=== PATIENT | male | born 1940 | race Two or more races ===

== ENCOUNTER 2019-12-11 07:49 | Emergency (ER) | payer MEDICARE, MEDICAID ==
[~2019-12-11] VITALS: Ht 160 cm; Wt 93.4 kg
[~2019-12-11 07:49] MED LIST: ASPIRIN81 M3 PO; KAPSPARGO SPRIN25 MG PO; LISINOPRIL20 MG ORAL; METFORMIN HCL1000 M1 ORAL; METOPROLOL SUCC25 MG ORAL; MICROZIDE12.5 M1 PO; PROTONIX40 M2 PO
[2019-12-11] MEDS ORDERED: CATAPRES0.3 MG ORAL (08:03)
[2019-12-11] MEDS ORDERED: OMEPRAZOLE20 M2 ORAL (08:03)
[2019-12-11] MEDS ORDERED: MINOXIDIL10 MG PO (08:03)
[2019-12-11] MEDS ORDERED: METOPROLOL TAR100 M1 ORAL (08:03)
[2019-12-11] MEDS ORDERED: GLIMEPIRIDE4 MG ORAL (08:03)
[2019-12-11] MEDS ORDERED: ABILIFY10 MG ORAL (08:03)
[2019-12-11] MEDS ORDERED: HYDRALAZINE HC100 MG ORAL (08:03)
--- NOTE | 2019-12-11 08:05 | NUR ---
ED Nurse Note: PT WALKED IN WITH HIS SON DUE TO BEING UNABLE TO URINATE X 2 DAYS. NOTED SWELLING OF BLE AND BP 218/84 IN TRIAGE. DENIES CP OR SOB. AAO X4, AMBULATORY WITH NON LABORED BREATHING.
[2019-12-11 08:13] VITALS: BP 200/69
--- NOTE | 2019-12-11 08:47 | Emergency Room Report ---
History of Present Illness General Chief Complaint: Male Urogenital Problems Source: Medical Record Present Illness HPI 79-year-old male presents ED for evaluation. Patient states that he has been having chills since last night. Afebrile in triage. States that he has been having increased urinary dysuria and difficulty urinating since last night. Denies fevers as pain. Denies cough. Denies chest pain or shortness of breath. Also notes some intermittent leg swelling. BP high in triage. States that he did not take his morning BP meds. No other aggravating relieving factors. Denies any other associated symptoms Allergies: Coded Allergies: No Known Allergies (Unverified , 12/04/18) Patient History Past Medical History: DM, HTN Past Surgical History: none Pertinent Family History: none Social History: Denies: smoking, alcohol use, drug use Immunizations: UTD Reviewed Nursing Documentation: PMH: Agreed; PSxH: Agreed Nursing Documentation-PMH Past Medical History: No History, Except For Hx Hypertension: Yes Hx Diabetes: Yes Hx Cancer: No Hx Gastrointestinal Problems: No Hx Neurological Problems: No Review of Systems All Other Systems: negative except mentioned in HPI Physical Exam Vital Signs Date Time Temp Pulse Resp B/P (MAP) Pulse Ox O2 Delivery O2 Flow Rate FiO2 12/11/19 07:55 98.4 73 18 218/84 (128) 98 Room Air Sp02 EP Interpretation: reviewed, normal General Appearance: no apparent distress, alert, GCS 15, non-toxic Head: normocephalic, atraumatic Eyes: bilateral eye normal inspection, bilateral eye PERRL ENT: hearing grossly normal, normal pharynx, no angioedema, normal voice Neck: full range of motion, supple/symm/no masses Respiratory: chest non-tender, lungs clear, normal breath sounds, speaking full sentences Cardiovascular #1: regular rate, rhythm, no edema Cardiovascular #2: 2+ carotid (R), 2+ carotid (L), 2+ radial (R), 2+ radial (L) , 2+ dorsalis pedis (R), 2+ dorsalis pedis (L) Gastrointestinal: normal bowel sounds, non tender, soft, non-distended, no guarding, no rebound Rectal: deferred Genitourinary: normal inspection, no CVA tenderness Musculoskeletal: back normal, normal range of motion, gait/station normal, non- tender, swelling - 1+ pitting edema Neurologic: alert, motor strength/tone normal, oriented x3, sensory intact, responsive, speech normal Psychiatric: judgement/insight normal, memory normal, mood/affect normal, no suicidal/homicidal ideation Reflexes: 3+ bicep (R), 3+ bicep (L), 3+ tricep (R), 3+ tricep (L), 3+ knee (R) , 3+ knee (L) Skin: other - see nursing skin notes Lymphatic: no adenopathy Medical Decision Making Diagnostic Impression: Primary Impression: Renal insufficiency Additional Impression: Dysuria ER Course Hospital Course 79 yo M presents with dysuria, subjective fever and chills Differential diagnoses include: sepsis, UTI, pneumonia Clinical course Patient placed on stretcher. After initial history, physical exam reveals an elderly male in no acute distress. Bilateral TM unremarkable. No pharyngeal erythema. No tonsillar exudates. No lymphadenopathy. lungs clear. I ordered labs, IV fluids, UA, chest x-ray. Labs reviewed-no leukocytosis, hemoglobin/hematocrit stable, Cr 1.9, UA negative Chest x-ray shows no focal consolidation. no acute process Initially BP high. Had not taken his morning BP meds. Given hydralazine in ED with BP improved. There is initially discussion on admitting the patient. Patient asymptomatic. No signs of infection. No overt signs of CHF. Vitals stable. Son at bedside and agrees that patient can be discharged to home. Discussed with PMD Dr. Harris and he agreed that patient can be discharged with salt close outpatient follow-up Diagnosis - renal insufficiency, dysuria Stable and discharged home. Instructed to followup with PMD. Return to ED if symptoms recur or worsen Labs Test 12/11/19 08:30 12/11/19 09:05 White Blood Count 8.3 K/UL (4.8-10.8) Red Blood Count 3.59 M/UL (4.70-6.10) Hemoglobin 10.5 G/DL (14.2-18.0) Hematocrit 31.2 % (42.0-52.0) Mean Corpuscular Volume 87 FL (80-99) Mean Corpuscular Hemoglobin 29.4 PG (27.0-31.0) Mean Corpuscular Hemoglobin Concent 33.7 G/DL (32.0-36.0) Red Cell Distribution Width 16.7 % (11.6-14.8) Platelet Count 145 K/UL (150-450) Mean Platelet Volume 7.3 FL (6.5-10.1) Neutrophils (%) (Auto) 69.5 % (45.0-75.0) Lymphocytes (%) (Auto) 18.5 % (20.0-45.0) Monocytes (%) (Auto) 7.7 % (1.0-10.0) Eosinophils (%) (Auto) 2.9 % (0.0-3.0) Basophils (%) (Auto) 1.4 % (0.0-2.0) Sodium Level 132 MMOL/L (136-145) Potassium Level 5.0 MMOL/L (3.5-5.1) Chloride Level 98 MMOL/L (98-107) Carbon Dioxide Level 26 MMOL/L (21-32) Anion Gap 8 mmol/L (5-15) Blood Urea Nitrogen 27 mg/dL (7-18) Creatinine 1.9 MG/DL (0.55-1.30) Estimat Glomerular Filtration Rate 34.5 mL/min (>60) Glucose Level 164 MG/DL (74-106) Lactic Acid Level 1.80 mmol/L (0.4-2.0) Calcium Level 8.7 MG/DL (8.5-10.1) Total Bilirubin 0.4 MG/DL (0.2-1.0) Aspartate Amino Transf (AST/SGOT) 34 U/L (15-37) Alanine Aminotransferase (ALT/SGPT) 23 U/L (12-78) Alkaline Phosphatase 119 U/L (46-116) Troponin I 0.013 ng/mL (0.000-0.056) Pro-B-Type Natriuretic Peptide 1267 pg/mL (0-125) Total Protein 6.3 G/DL (6.4-8.2) Albumin 3.4 G/DL (3.4-5.0) Globulin 2.9 g/dL Albumin/Globulin Ratio 1.2 (1.0-2.7) Urine Color Pale yellow Urine Appearance Clear Urine pH 5 (4.5-8.0) Urine Specific [place] 1.010 (1.005-1.035) Urine Protein Negative (NEGATIVE) Urine Glucose (UA) Negative (NEGATIVE) Urine Ketones Negative (NEGATIVE) Urine Blood Negative (NEGATIVE) Urine Nitrite Negative (NEGATIVE) Urine Bilirubin Negative (NEGATIVE) Urine Urobilinogen Normal MG/DL (0.0-1.0) Urine Leukocyte Esterase Negative (NEGATIVE) EKG Diagnostic Results Rate: normal Rhythm: NSR ST Segments: no acute changes ASA given to the pt in ED: No Rhythm Strip Diag. Results EP Interpretation: yes Rhythm: NSR, no PVC's, no ectopy Chest X-Ray Diagnostic Results Chest X-Ray Diagnostic Results : Chest X-Ray Ordered: Yes # of Views/Limited/Complete: 1 View Indication: Other EP Interpretation: Yes Interpretation: no consolidation, no effusion, no pneumothorax, no acute cardiopulmonary disease Impression: No acute disease Electronically Signed by: Electronically signed by Mario Izaguirre MD Last Vital Signs Date Time Temp Pulse Resp B/P (MAP) Pulse Ox O2 Delivery O2 Flow Rate FiO2 12/11/19 08:13 98.4 79 16 200/69 97 Room Air Status: improved Disposition: HOME, SELF-CARE Condition: Stable Referrals: Reggie Harris MD (PCP) Mario Izaguirre MD Dec 11, 2019 08:47
[2019-12-11 08:51] LABS: BASOPHILS % (AUTO) 1.4 % (0.0-2.0); EOSINOPHILS % (AUTO) 2.9 % (0.0-3.0); HEMATOCRIT 31.2 % (42.0-52.0); HEMOGLOBIN 10.5 G/DL (14.2-18.0); LYMPHOCYTES % (AUTO) 18.5 % (20.0-45.0); MEAN CORPUSCULAR VOLUME 87 FL (80-99); MONOCYTES % (AUTO) 7.7 % (1.0-10.0); NEUTROPHILS % (AUTO) 69.5 % (45.0-75.0); PLATELET COUNT 145 K/UL (150-450); RED BLOOD COUNT 3.59 M/UL (4.70-6.10); RED CELL DISTRIBUTION WIDTH 16.7 % (11.6-14.8); WHITE BLOOD COUNT 8.3 K/UL (4.8-10.8)
[2019-12-11 09:01] LABS: ANION GAP 8 mmol/L (5-15); BLOOD UREA NITROGEN 27 mg/dL (7-18); CALCIUM 8.7 MG/DL (8.5-10.1); CARBON DIOXIDE 26 MMOL/L (21-32); CHLORIDE 98 MMOL/L (98-107); CREATININE 1.9 MG/DL (0.55-1.30); SODIUM 132 MMOL/L (136-145)
--- NOTE | 2019-12-11 09:03 | Diagnostic Imaging Report ---
EXAM: XR Chest, 1 View CLINICAL HISTORY: Shortness of breath TECHNIQUE: Frontal view of the chest. COMPARISON: Chest x-ray dated 12/04/18 FINDINGS: Lungs: Unremarkable. The lungs appear clear. No focal consolidation. Pleural space: Unremarkable. The costophrenic angles are sharp. No visible pneumothorax. Heart: Unremarkable. No cardiomegaly. Mediastinum: Unremarkable. Bones/joints: Unremarkable. Tubes, lines and devices: Telemetry leads overlie the thorax. IMPRESSION: No acute findings.
--- NOTE | 2019-12-11 09:05 | NUR ---
ED Nurse Note: SON TOOK ALL PT'S MEDICATIONS HOME. FLU SWAB AND URINE SENT TO LAB.
[2019-12-11 09:12] LABS: ALANINE AMINOTRANSFERASE 23 U/L (12-78); ALBUMIN 3.4 G/DL (3.4-5.0); ALBUMIN/GLOBULIN RATIO 1.2 (1.0-2.7); ALKALINE PHOSPHATASE 119 U/L (46-116); ASPARTATE AMINO TRANSFERASE 34 U/L (15-37); BILIRUBIN,TOTAL 0.4 MG/DL (0.2-1.0)
[2019-12-11 09:15] LABS: APPEARANCE,URINE CLEAR; BILIRUBIN, URINE NEGATIVE (NEGATIVE); COLOR,URINE PALE YELLOW; GLUCOSE, URINE (UA) NEGATIVE (NEGATIVE); KETONES,URINE NEGATIVE (NEGATIVE); LEUKOCYTE ESTERASE ,URINE NEGATIVE (NEGATIVE); NITRITE,URINE NEGATIVE (NEGATIVE); PH,URINE 5 (4.5-8.0); PROTEIN,URINE NEGATIVE (NEGATIVE); UROBILINOGEN,URINE NORMAL MG/DL (0.0-1.0)
--- NOTE | 2019-12-11 10:00 | NUR ---
ED Nurse Note: PT WITH NO ACUTE DISTRESS. DR SUAREZ SPOKE TO PT'S SON AND ADMISSION IS CANCELLED. WAITING FOR SON TO REAL ESTATE ADMINISTRATIVE ASSISTANT THE PT.
[2019-12-11 10:08] VITALS: BP 161/61
--- NOTE | 2019-12-11 11:46 | NUR ---
ED Nurse Note: attempted to call the son multiple times but did not answer. left a voice message
[2019-12-11 12:00] VITALS: BP 157/57
[2019-12-11 13:08] VITALS: BP 153/53
--- NOTE | 2019-12-11 13:08 | NUR ---
ER DISCHARGE NOTE: Patient is cleared to be discharged per ERMD, pt is aox4, on room air, with stable vital signs. pt was given dc instructions, pt was able to verbalize understanding, pt id band and iv site removed without complications. pt is able to ambulate with steady gait. pt took all belongings and left with his son.
== END 2019-12-11 13:08 | disposition home or self-care (01) ==
LOC: EMR 08:10
DX: N28.9 Disorder of kidney and ureter, unspecified (principal); R30.0 Dysuria; E11.9 Type 2 diabetes mellitus without complications; I10 Essential (primary) hypertension
CPT/HCPCS: 36415; 71045; 80053; 81003; 83605; 83880; 84484; 85025; 86710; 93005; 96374; 99284; J0360

== ENCOUNTER 2019-12-30 08:35 | Inpatient (IN) | payer MEDICARE, MEDICAID ==
[~2019-12-30] VITALS: Ht 162.6 cm; Wt 88.0 kg
[2019-12-30] VITALS (7 sets, daily range): BP systolic 161–217; BP diastolic 68–88
[~2019-12-30 08:35] MED LIST changes: +ABILIFY10 MG ORAL; +CATAPRES0.3 MG ORAL; +GLIMEPIRIDE4 MG ORAL; +HYDRALAZINE HC100 MG ORAL; +METOPROLOL TAR100 M1 ORAL; +MINOXIDIL10 MG PO; +OMEPRAZOLE20 M2 ORAL
[2019-12-30 09:25] LABS: BASOPHILS % (AUTO) 1.5 % (0.0-2.0); EOSINOPHILS % (AUTO) 1.9 % (0.0-3.0); HEMATOCRIT 33.8 % (42.0-52.0); HEMOGLOBIN 11.4 G/DL (14.2-18.0); LYMPHOCYTES % (AUTO) 12.2 % (20.0-45.0); MEAN CORPUSCULAR VOLUME 87 FL (80-99); NEUTROPHILS % (AUTO) 79.4 % (45.0-75.0); PLATELET COUNT 185 K/UL (150-450); RED BLOOD COUNT 3.87 M/UL (4.70-6.10); RED CELL DISTRIBUTION WIDTH 17.4 % (11.6-14.8); WHITE BLOOD COUNT 9.5 K/UL (4.8-10.8)
--- NOTE | 2019-12-30 09:26 | Diagnostic Imaging Report ---
Indication: Chest pain Technique: One view of the chest Comparison: 12/11/2019 Findings: Lungs and pleural spaces are clear. Heart size is normal. No significant change Impression: No acute process
--- NOTE | 2019-12-30 09:49 | Diagnostic Imaging Report ---
Indications: Headache Technique: Spiral acquisitions obtained through the brain. Angled axial and coronal 5 x 5 mm slices were reconstructed. Total dose length product 1018 mGycm. CTDI vol(s) 53 mGy. Dose reduction achieved using automated exposure control Comparison: None. Findings: There is age-related enlargement of the ventricles and extra axial CSF spaces. There is periventricular deep white matter low-attenuation, consistent with chronic microvascular ischemic change. No acute intracranial hemorrhage or edema. No mass effect nor midline shift. Intact calvarium. Visualized orbits are unremarkable. There is minimal sphenoid sinus disease Impression: Chronic and age-related changes Negative for acute intracranial bleed or mass effect The CT scanner at [facility] is accredited by the [employer] and the scans are performed using protocols designed to limit radiation exposure to as low as reasonably achievable to attain images of sufficient resolution adequate for diagnostic evaluation.
[2019-12-30 12:33] LABS: ANION GAP 13 mmol/L (5-15); BLOOD UREA NITROGEN 19 mg/dL (7-18); CALCIUM 9.3 MG/DL (8.5-10.1); CARBON DIOXIDE 24 MMOL/L (21-32); CHLORIDE 103 MMOL/L (98-107); CREATININE 1.3 MG/DL (0.55-1.30); POTASSIUM 4.8 MMOL/L (3.5-5.1); SODIUM 140 MMOL/L (136-145)
[2019-12-30 12:37] LABS: ALANINE AMINOTRANSFERASE 35 U/L (12-78); ALBUMIN 3.3 G/DL (3.4-5.0); ALKALINE PHOSPHATASE 139 U/L (46-116); ASPARTATE AMINO TRANSFERASE 26 U/L (15-37); BILIRUBIN,TOTAL 0.5 MG/DL (0.2-1.0)
--- NOTE | 2019-12-30 13:06 | Emergency Room Report ---
History of Present Illness General Chief Complaint: Hypertension Source: Patient Present Illness HPI Patient presents with complaints of headache elevated blood pressure Complains of increased nausea denies any fall or trauma denies any chest pain denies any back or flank pain Denies any focal weakness Pain is 4 out of 10 and diffuse Denies any neck pain or photophobia patient reports taking his underlying medication Allergies: Coded Allergies: No Known Allergies (Unverified , 12/04/18) Patient History Past Medical History: see triage record Reviewed Nursing Documentation: PMH: Agreed; PSxH: Agreed Nursing Documentation-PMH Past Medical History: No History, Except For Hx Hypertension: Yes Hx Diabetes: Yes Hx Cancer: No Hx Gastrointestinal Problems: No Hx Neurological Problems: No Review of Systems All Other Systems: negative except mentioned in HPI Physical Exam Vital Signs Date Time Temp Pulse Resp B/P (MAP) Pulse Ox O2 Delivery O2 Flow Rate FiO2 12/30/19 08:34 98.4 69 18 213/75 (121) 96 Room Air Sp02 EP Interpretation: reviewed, normal General Appearance: well appearing, no apparent distress Head: normocephalic, atraumatic Eyes: bilateral eye PERRL, bilateral eye EOMI ENT: hearing grossly normal, normal pharynx, TMs + canals normal, uvula midline Neck: full range of motion, supple, no meningismus, no bony tend Respiratory: lungs clear, normal breath sounds, no rhonchi, no respiratory distress, no retraction, no accessory muscle use Cardiovascular #1: normal peripheral pulses, regular rate, rhythm, no edema, no gallop, no JVD, no murmur Gastrointestinal: normal bowel sounds, non tender, soft, no mass, no organomegaly, non-distended, no guarding, no hernia, no pulsatile mass, no rebound Genitourinary: no CVA tenderness Musculoskeletal: normal inspection Neurologic: motor strength/tone normal, auto transmission specialist III-XII nml as tested, oriented x3 , sensory intact, responsive Psychiatric: mood/affect normal Lymphatic: normal inspection, no adenopathy Procedures Critical Care Time Critical Care Time 50 minutes for multiple evaluations critical findings requiring multiple exams control of blood pressure concern for deterioration and possible not including any procedural time Medical Decision Making Diagnostic Impression: Primary Impression: Hypertensive urgency, malignant ER Course Multiple differentials including but not limited to neurological, neurosurgical , cardiac, cardiopulmonary disease entertained Patient requiring repeat interventions for blood pressure at this time given the elevated findings CT head was negative patient's blood work otherwise benign levels and patient admitted for further inpatient care in critical condition Labs Test 12/30/19 09:00 12/30/19 15:50 12/31/19 05:45 White Blood Count 9.5 K/UL (4.8-10.8) 8.6 K/UL (4.8-10.8) Red Blood Count 3.87 M/UL (4.70-6.10) 3.75 M/UL (4.70-6.10) Hemoglobin 11.4 G/DL (14.2-18.0) 11.2 G/DL (14.2-18.0) Hematocrit 33.8 % (42.0-52.0) 32.8 % (42.0-52.0) Mean Corpuscular Volume 87 FL (80-99) 88 FL (80-99) Mean Corpuscular Hemoglobin 29.4 PG (27.0-31.0) 29.8 PG (27.0-31.0) Mean Corpuscular Hemoglobin Concent 33.7 G/DL (32.0-36.0) 34.0 G/DL (32.0-36.0) Red Cell Distribution Width 17.4 % (11.6-14.8) 17.1 % (11.6-14.8) Platelet Count 185 K/UL (150-450) 171 K/UL (150-450) Mean Platelet Volume 8.6 FL (6.5-10.1) 8.7 FL (6.5-10.1) Neutrophils (%) (Auto) 79.4 % (45.0-75.0) 64.2 % (45.0-75.0) Lymphocytes (%) (Auto) 12.2 % (20.0-45.0) 24.2 % (20.0-45.0) Monocytes (%) (Auto) 5.0 % (1.0-10.0) 7.3 % (1.0-10.0) Eosinophils (%) (Auto) 1.9 % (0.0-3.0) 2.9 % (0.0-3.0) Basophils (%) (Auto) 1.5 % (0.0-2.0) 1.5 % (0.0-2.0) Sodium Level 140 MMOL/L (136-145) 138 MMOL/L (136-145) Potassium Level 4.8 MMOL/L (3.5-5.1) 4.1 MMOL/L (3.5-5.1) Chloride Level 103 MMOL/L (98-107) 103 MMOL/L (98-107) Carbon Dioxide Level 24 MMOL/L (21-32) 30 MMOL/L (21-32) Anion Gap 13 mmol/L (5-15) 5 mmol/L (5-15) Blood Urea Nitrogen 19 mg/dL (7-18) 15 mg/dL (7-18) Creatinine 1.3 MG/DL (0.55-1.30) 1.2 MG/DL (0.55-1.30) Estimat Glomerular Filtration Rate 53.4 mL/min (>60) 58.6 mL/min (>60) Glucose Level 241 MG/DL (74-106) 201 MG/DL (74-106) Calcium Level 9.3 MG/DL (8.5-10.1) 9.1 MG/DL (8.5-10.1) Total Bilirubin 0.5 MG/DL (0.2-1.0) 0.5 MG/DL (0.2-1.0) Aspartate Amino Transf (AST/SGOT) 26 U/L (15-37) 27 U/L (15-37) Alanine Aminotransferase (ALT/SGPT) 35 U/L (12-78) 33 U/L (12-78) Alkaline Phosphatase 139 U/L (46-116) 120 U/L (46-116) Troponin I 0.018 ng/mL (0.000-0.056) 0.034 ng/mL (0.000-0.056) 0.033 ng/mL (0.000-0.056) Pro-B-Type Natriuretic Peptide 1158 pg/mL (0-125) Total Protein 6.6 G/DL (6.4-8.2) 6.3 G/DL (6.4-8.2) Albumin 3.3 G/DL (3.4-5.0) 3.3 G/DL (3.4-5.0) Globulin 3.3 g/dL 3.0 g/dL Albumin/Globulin Ratio 1.0 (1.0-2.7) 1.1 (1.0-2.7) Hemoglobin A1c 7.3 % (4.3-6.0) Triglycerides Level 101 MG/DL (30-150) Cholesterol Level 141 MG/DL (< 200) LDL Cholesterol 69 mg/dL (<100) HDL Cholesterol 45 MG/DL (40-60) Cholesterol/HDL Ratio 3.1 (3.3-4.4) Thyroid Stimulating Hormone (TSH) 2.008 uiU/mL (0.358-3.740) Rhythm Strip Diag. Results EP Interpretation: yes Rate: 78 Rhythm: NSR, no PVC's, no ectopy Chest X-Ray Diagnostic Results Chest X-Ray Diagnostic Results : Chest X-Ray Ordered: Yes # of Views/Limited/Complete: 1 View Indication: Chest Pain EP Interpretation: Yes Interpretation: no consolidation, no effusion, no pneumothorax Impression: No acute disease Electronically Signed by: Mari Davila, CT/MRI/US Diagnostic Results CT/MRI/US Diagnostic Results : Impression CT headImpression: Chronic and age-related changes Negative for acute intracranial bleed or mass effect Last Vital Signs Date Time Temp Pulse Resp B/P (MAP) Pulse Ox O2 Delivery O2 Flow Rate FiO2 12/30/19 12:56 203/69 12/30/19 10:45 98.0 56 18 96 Room Air Status: improved Disposition: ADMITTED INPATIENT Condition: Serious Scripts Escitalopram Oxalate (LEXAPRO) 5 Mg Tablet 5 MG ORAL DAILY for 30 Days, #30 TAB Prov: Paramjit John MD 12/31/19 Metoprolol Tartrate* (METOPROLOL TARTRATE*) 100 Mg Tablet 100 MG ORAL EVERY 12 HOURS for 30 Days, #60 TAB Prov: Paramjit John MD 12/31/19 Lisinopril* (PRINIVIL*) 20 Mg Tablet 40 MG ORAL DAILY for 30 Days, #30 TAB Prov: Paramjit John MD 12/31/19 Aspirin Ec* (ASPIRIN EC*) 81 Mg Tablet.dr 81 MG ORAL DAILY for 30 Days, #30 TAB Prov: Paramjit John MD 12/31/19 Amlodipine Besylate (Norvasc) 5 Mg Tablet 5 MG ORAL DAILY for 30 Days, #30 TAB Prov: Tirmizi,Paramjit Tim MD 12/31/19 Referrals: NOT CHOSEN [facility]/,REFERRING (PCP) Mari Davila DO Dec 30, 2019 13:06
--- NOTE | 2019-12-30 14:59 | History & Physical ---
History and Physical History & Physicial HISTORY OF PRESENT ILLNESS: The patient is a 79-year-old gentleman who presents to the emergency department for evaluation and management of hypertension. At home, the patient takes metoprolol for this condition. At the time of arrival to the hospital, he had some chest pain, described as burning sensation, 5/10, nonradiating, and non-provoked. There was no associated shortness of breath. The patient was admitted to telemetry for further evaluation and management. At the time of arrival to the hospital, blood pressure was 230/94 mmHg. PAST MEDICAL HISTORY: Diabetes mellitus and hypertension. PAST SURGICAL HISTORY: None. FAMILY HISTORY: No premature coronary artery disease or arrhythmogenic in the first-degree relatives. SOCIAL HISTORY: Denies any tobacco, alcohol, or illicit drug use. REVIEW OF SYSTEMS: HEENT: Denies any diplopia, or blurred vision. CONSTITUTIONAL: Denies any fever, chills, night sweats, or weight loss. CARDIOVASCULAR: Complains of chest pain. No shortness of breath. No complaints of PND, orthopnea, leg swelling, or syncope. PULMONARY: Denies any cough, hemoptysis, or wheezing. GASTROINTESTINAL: Denies any nausea, vomiting, diarrhea, constipation, abdominal pain, or GI bleed. GENITOURINARY: Denies any hematuria, dysuria, or incontinence. NEUROLOGY: Denies any motor dysfunction, sensory deficit, or altered speech. MEDICATIONS: List of medications at home include: 1. Hydrochlorothiazide 12.5 mg p.o. daily. 2. Metoprolol 25 mg p.o. daily. PHYSICAL EXAMINATION: VITAL SIGNS: Blood pressure at the time of arrival to the hospital was 230/94, respirations of 18, pulse oximetry of 98% on room air, and temperature 97.5 degrees Fahrenheit. GENERAL: no apparent respiratory distress. Awake and alert. HEENT: Atraumatic and normocephalic. Anicteric. Pupils are equal, round, and reactive to light and accommodation. Extraocular muscles intact. NECK: JVP less than 5 cm. No carotid bruit. Carotid upstroke is 2+ bilaterally. CARDIOVASCULAR: Normal S1 and S2. Regular rate and rhythm. Tachycardic. No murmurs, gallops, or rubs. PMI is at fourth intercostal space at midclavicular line. LUNGS: Clear to auscultation bilaterally. ABDOMEN: Soft, nontender, and nondistended. No hepatosplenomegaly. Positive bowel sounds. EXTREMITIES: No evidence of edema, clubbing, or cyanosis. LABORATORY FINDINGS: Reviewed ASSESSMENT AND PLAN: 1. Hypertensive urgency. He has received intravenous hydralazine in the ER I will consult cardiology. I will continue the patient's metoprolol. Continue monitoring the heart rate during this hospitalization. 2. Diabetes mellitus. [place] diabetic monitoring Paramjit Baig M.D., MD Dec 30, 2019 14:59
[2019-12-30] MEDS ORDERED: Lisinopril 20mg tab ORAL SCH (15:07)
[2019-12-30] MEDS ORDERED: Metoprolol Tartrate 100mg tab ORAL SCH (17:00)
[2019-12-30] MEDS: Heparin 5000 units/ml inj SUBQ SCH (17:44)
[2019-12-30] MEDS: Metoprolol Tartrate 100mg tab ORAL SCH (21:38)
[2019-12-30] MEDS: NovoLOG Insulin Flexpen SUBQ SCH (21:39)
[2019-12-31] VITALS: BP 183/80
[2019-12-31] MEDS: HydrALAZINE 25mg tab ORAL PRN ×3 (00:38→16:42)
--- NOTE | 2019-12-31 01:15 | Consultation ---
DATE OF CONSULTATION: 12/30/2019 CARDIOLOGY CONSULTATION CONSULTING PHYSICIAN: Volodymyr Calvo M.D. REFERRING PHYSICIAN: Paramjit John M.D. REASON FOR CONSUL: Hypertensive urgency and with chest pain. HISTORY OF PRESENT ILLNESS: This is a 79-year-old male with a longstanding history of hypertension and hypertensive heart disease as well as type 2 diabetes mellitus. He presented to the emergency room complaining of high blood pressure associated with headaches and some blurry vision. He also noted some chest discomfort described as a burning sensation in the mid substernal region, unprovoked, and nonradiating without any associated shortness of breath. His initial workup was notable for a blood pressure of 230/94. His troponin level was 0.018. His electrocardiogram in the emergency room reveals his sinus rhythm with nonspecific ST-T wave changes and voltage for left ventricular hypertrophy. PAST MEDICAL HISTORY: Includes hypertension, type 2 diabetes mellitus, osteoarthritis, and pulmonary hypertension. ALLERGIES: None. MEDICATIONS: Prior to admission, reviewed and reconciled. It is not clear however how compliant he has been. SOCIAL HISTORY: Denies smoking, alcohol, or substance abuse. FAMILY HISTORY: Noncontributory. REVIEW OF SYSTEMS: No fevers or chills. No recent cough or upper respiratory infection. No history of abnormal blood clotting. He was hospitalized here in 2019 with a similar presentation. At that time, a 2D echocardiogram performed revealed PA systolic pressure of 41 mmHg and an ejection fraction of 65 percent with normal wall motion. A stress test was not performed. He was managed medically. There is no history of seizure or stroke. His headaches are frequent and he claims he has migraines. He has diabetes managed with diet. There is no history of thyroid disorder and he does not know his cholesterol level. There is no history of prostate cancer or elevated PSA. No kidney disease that he is aware of. No change in bowel habits, melena, or bright red blood per rectum. PHYSICAL EXAMINATION: GENERAL: He is well developed and well nourished, in no acute distress presently, but does complain of a significant headache. VITAL SIGNS: Blood pressure now 181/72, heart rate 57, monitored rhythm, sinus bradycardia, respiratory rate 18. No fevers. Male pattern balding. HEENT: Fundi benign. Conjunctivae pink. Sclerae are anicteric. Oropharynx clear. Mucous membranes moist. NECK: Supple. Jugular venous pressure is slightly elevated. Carotid upstrokes without delay or bruits. There is no temporal tenderness to palpation. LUNGS: Clear. CARDIAC: Regular rhythm and rate. Normal S1, S2 with a fourth heart sound and a 1/6 systolic murmur at the lower left sternal border. ABDOMEN: Soft and nontender. EXTREMITIES: Good pulses. No edema. NEUROLOGIC: Nonfocal. There are no bruits and distal pulses are 2+ symmetric. LABORATORY DATA: White count 9.5 and hemoglobin 11.4. BUN 19 and creatinine 1.3. Potassium 4.8. Pro-natriuretic peptide 1158. Albumin 3.3. Chest x-ray with no acute process. IMPRESSION: 1. Hypertensive urgency. 2. Sinus bradycardia due to beta-blockers. 3. Acute coronary insufficiency due to diastolic dysfunction and severe hypertension with increase in myocardial demand. 4. History of type 2 diabetes mellitus. PLAN: 1. Cardiac monitoring. 2. Cautious up-titration of antihypertensive regimen. 3. Antiplatelet therapy. 4. Lipid panel. 5. Serial troponin levels. 6. Thyroid panel. 7. Lipid panel. 8. Repeat echocardiogram. 9. We will determine need for further ischemia workup once blood pressure parameters are stabilized. Volodymyr Calvo M.D. DR: JOSS JOB#: [id number] CC:
[2019-12-31 04:00] VITALS: BP 161/75
[2019-12-31] MEDS: NovoLOG Insulin Flexpen SUBQ SCH ×3 (06:20→16:47)
[2019-12-31] MEDS ORDERED: NovoLOG Insulin Flexpen SUBQ SCH (06:30)
[2019-12-31 07:21] LABS: BASOPHILS % (AUTO) 1.5 % (0.0-2.0); EOSINOPHILS % (AUTO) 2.9 % (0.0-3.0); HEMATOCRIT 32.8 % (42.0-52.0); HEMOGLOBIN 11.2 G/DL (14.2-18.0); LYMPHOCYTES % (AUTO) 24.2 % (20.0-45.0); MEAN CORPUSCULAR VOLUME 88 FL (80-99); MONOCYTES % (AUTO) 7.3 % (1.0-10.0); NEUTROPHILS % (AUTO) 64.2 % (45.0-75.0); PLATELET COUNT 171 K/UL (150-450); RED BLOOD COUNT 3.75 M/UL (4.70-6.10); RED CELL DISTRIBUTION WIDTH 17.1 % (11.6-14.8); WHITE BLOOD COUNT 8.6 K/UL (4.8-10.8)
[2019-12-31 08:00] VITALS: BP 179/85
[2019-12-31 08:20] LABS: ALANINE AMINOTRANSFERASE 33 U/L (12-78); ALBUMIN 3.3 G/DL (3.4-5.0); ALBUMIN/GLOBULIN RATIO 1.1 (1.0-2.7); ALKALINE PHOSPHATASE 120 U/L (46-116); ANION GAP 5 mmol/L (5-15); ASPARTATE AMINO TRANSFERASE 27 U/L (15-37); BILIRUBIN,TOTAL 0.5 MG/DL (0.2-1.0); BLOOD UREA NITROGEN 15 mg/dL (7-18); CALCIUM 9.1 MG/DL (8.5-10.1); CARBON DIOXIDE 30 MMOL/L (21-32); CHLORIDE 103 MMOL/L (98-107); CHOLESTEROL 141 MG/DL (< 200); CREATININE 1.2 MG/DL (0.55-1.30); HDL CHOLESTEROL 45 MG/DL (40-60); POTASSIUM 4.1 MMOL/L (3.5-5.1); SODIUM 138 MMOL/L (136-145); TRIGLYCERIDES 101 MG/DL (30-150)
[2019-12-31] MEDS: Metoprolol Tartrate 100mg tab ORAL SCH (08:25)
[2019-12-31] MEDS: Heparin 5000 units/ml inj SUBQ SCH (08:30)
[2019-12-31] MEDS ORDERED: Lisinopril 20mg tab ORAL SCH (09:00)
[2019-12-31] MEDS ORDERED: Aspirin EC 81mg tab ORAL SCH (09:00)
--- NOTE | 2019-12-31 09:15 | Pulmonology Progress Note ---
Assessment/Plan Assessment/Plan ASSESSMENT AND PLAN: 1. Hypertensive urgency. He has received intravenous hydralazine in the ER Seen by cardiology. I will continue the patient's metoprolol. DC home today as p[ressures are controlled. Continue monitoring the heart rate during this hospitalization. 2. Diabetes mellitus. [place] monitoring Paramjit John M.D. Subjective Interval Events: Feeling better; still weak; is depressed Constitutional: Reports: no symptoms HEENT: Repors: no symptoms Respiratory: Reports: no symptoms Cardiovascular: Reports: no symptoms Gastrointestinal/Abdominal: Reports: no symptoms Genitourinary: Reports: no symptoms Allergies: Coded Allergies: No Known Allergies (Unverified , 12/04/18) Objective Last 24 Hour Vital Signs Date Time Temp Pulse Resp B/P (MAP) Pulse Ox O2 Delivery O2 Flow Rate FiO2 12/31/19 08:26 179/85 12/31/19 08:25 69 179/85 12/31/19 08:25 69 179/85 12/31/19 08:00 98.2 69 20 179/85 (116) 97 12/31/19 05:25 163/78 12/31/19 04:04 55 12/31/19 04:00 97.6 56 16 161/75 (103) 97 12/31/19 00:38 177/74 12/31/19 00:00 97.8 56 16 183/80 (114) 96 12/31/19 00:00 53 12/30/19 21:38 59 160/74 12/30/19 21:00 Room Air 12/30/19 20:00 97.5 60 16 161/88 (112) 96 12/30/19 20:00 61 12/30/19 17:42 57 181/72 12/30/19 16:00 97.8 84 20 181/78 (112) 97 12/30/19 16:00 57 12/30/19 15:39 Room Air 12/30/19 15:07 181/72 12/30/19 14:10 98.2 59 19 170/65 96 Room Air 12/30/19 13:28 197/68 12/30/19 13:26 178/73 12/30/19 12:56 203/69 12/30/19 12:27 222/65 12/30/19 11:17 211/65 12/30/19 10:45 98.0 56 18 211/71 96 Room Air Intake and Output 12/30/19 12/31/19 19:00 07:00 Intake Total 0 ml 540 ml Output Total 1100 ml Balance 0 ml -560 ml Intake Oral 0 ml 540 ml Output Urine Total 1100 ml # Voids 1 General Appearance: no acute distress HEENT: normocephalic Respiratory/Chest: chest wall non-tender Cardiovascular: normal peripheral pulses Abdomen: normal bowel sounds Microbiology Date/Time Source Procedure Growth Status 12/30/19 09:45 Rectum Received Laboratory Tests 12/30/19 15:50: Troponin I 0.034 12/31/19 05:45: Troponin I 0.033, White Blood Count 8.6, Red Blood Count 3.75L, Hemoglobin 11.2L , Hematocrit 32.8L, Mean Corpuscular Volume 88, Mean Corpuscular Hemoglobin 29.8 , Mean Corpuscular Hemoglobin Concent 34.0, Red Cell Distribution Width 17.1H, Platelet Count 171, Mean Platelet Volume 8.7, Neutrophils (%) (Auto) 64.2, Lymphocytes (%) (Auto) 24.2, Monocytes (%) (Auto) 7.3, Eosinophils (%) (Auto) 2.9, Basophils (%) (Auto) 1.5, Sodium Level 138, Potassium Level 4.1, Chloride Level 103, Carbon Dioxide Level 30, Anion Gap 5, Blood Urea Nitrogen 15, Creatinine 1.2, Estimat Glomerular Filtration Rate 58.6, Glucose Level 201H, Hemoglobin A1c 7.3H, Calcium Level 9.1, Total Bilirubin 0.5, Aspartate Amino Transf (AST/SGOT) 27, Alanine Aminotransferase (ALT/SGPT) 33, Alkaline Phosphatase 120H, Total Protein 6.3L, Albumin 3.3L, Globulin 3.0, Albumin/ Globulin Ratio 1.1, Triglycerides Level 101, Cholesterol Level 141, LDL Cholesterol 69, HDL Cholesterol 45, Cholesterol/HDL Ratio 3.1L, Thyroid Stimulating Hormone (TSH) 2.008 Current Medications Medications (Trade) Dose Ordered Sig/Porter Route PRN Reason Start Time Stop Time Status Last Admin Dose Admin Acetaminophen (Tylenol) 650 mg Q4H PRN ORAL Mild Pain (Pain Scale 1-3) 12/30/19 15:15 01/29/20 15:14 Amlodipine Besylate (Norvasc) 5 mg DAILY ORAL 12/31/19 09:00 01/30/20 08:59 12/31/19 08:25 Aspirin (Ecotrin) 81 mg DAILY ORAL 12/31/19 09:00 02/14/20 08:59 12/31/19 08:25 Dextrose (Dextrose 50%) 25 ml Q30M PRN IV Hypoglycemia 12/30/19 15:15 01/29/20 15:14 Dextrose (Dextrose 50%) 25 ml Q30M PRN IV Hypoglycemia 12/30/19 17:45 01/29/20 17:44 Dextrose (Dextrose 50%) 50 ml Q30M PRN IV Hypoglycemia 12/30/19 15:15 01/29/20 15:14 Dextrose (Dextrose 50%) 50 ml Q30M PRN IV Hypoglycemia 12/30/19 17:45 01/29/20 17:44 Heparin Sodium (Porcine) (Heparin 5000 units/ml) 5,000 units EVERY 12 HOURS SUBQ 12/30/19 17:00 02/13/20 16:59 12/31/19 08:30 Hydralazine HCl (Apresoline) 25 mg Q4H PRN ORAL SBP above 160 12/30/19 17:30 01/29/20 17:29 12/31/19 05:25 Insulin Aspart (NovoLOG) BEFORE MEALS AND HS SUBQ 12/30/19 21:00 01/29/20 20:59 12/31/19 06:20 Lisinopril (PriniviL) 40 mg DAILY ORAL 12/31/19 09:00 01/30/20 08:59 12/31/19 08:26 Metoprolol Tartrate (Lopressor) 100 mg EVERY 12 HOURS ORAL 12/30/19 21:00 01/29/20 20:59 12/31/19 08:25 Paramjit John MD Dec 31, 2019 09:15
[2019-12-31] MEDS ORDERED: PRINIVIL20 MG ORAL (09:18)
[2019-12-31] MEDS ORDERED: ASPIRIN EC81 MG ORAL (09:18)
[2019-12-31] MEDS ORDERED: NORVASC5 MG ORAL (09:18)
[2019-12-31] MEDS ORDERED: LEXAPRO5 MG ORAL (09:18)
[2019-12-31] MEDS ORDERED: METOPROLOL TAR100 M1 ORAL (09:18)
[2019-12-31 15:21] VITALS: BP 170/97
[2019-12-31 16:00] VITALS: BP 195/91
[2019-12-31 16:42] VITALS: BP 195/91
--- NOTE | 2020-01-02 01:59 | Progress Note ---
DATE: 12/31/2019 CARDIOLOGY PROGRESS NOTE SUBJECTIVE: The patient seen and evaluated. He has no chest pain or shortness of breath. His blood pressure parameters are improved but remained elevated. PHYSICAL EXAMINATION: VITAL SIGNS: Blood pressure 179/85, pulse 72, respiratory rate 20, afebrile, oxygen sat 96%. LUNGS: Clear. CARDIAC: Regular. Normal S1, S2 with a fourth heart sound. ABDOMEN: Soft. EXTREMITIES: There is no bruits or edema. LABORATORY AND DIAGNOSTIC DATA: White count 8.6, hemoglobin 11.2. Troponin negative. Hemoglobin A1c 7.3. LDL cholesterol 69. IMPRESSION: 1. Hypertensive urgency improved. 2. Medication noncompliance. 3. Type 2 diabetes mellitus with A1c of 7.3. 4. No signs for acute myocardial infarction or ongoing ischemia with better blood pressure control. 5. Favorable lipid parameters on current regimen. PLAN: 1. Stable for outpatient followup. 2. Discharge medication regimen reviewed. 3. Can advance amlodipine for tighter blood pressure control. 4. We will make further adjustments as an outpatient. Volodymyr Calvo M.D. DR: Daysi JOB#: [id number] CC:
--- NOTE | 2020-01-02 11:41 | Discharge Summary ---
Discharge Summary Discharge Summary _ DATE OF ADMISSION: 12/30/2019 DATE OF DISCHARGE: 12/31/2019 DISCHARGED BY: Dr. Shell John CONSULTANTS: Dr. Volodymyr Calvo BRIEF HOSPITAL COURSE: Patient is a 79-year-old gentleman who presented to the emergency department for evaluation and management of hypertension. Patient takes metoprolol for this condition. He has medical history of diabetes and hypertension. At the time of arrival to the hospital, he had chest pain, described as burning sensation, 5/10, nonradiating, and non-provoked. There was no associated shortness of breath. Blood pressure was 213/75. He complained of headache. He has increased nausea. He denied any fall or trauma. Denied back or flank pain. Denies neck pain or photophobia. Blood work did not show any leukocytosis. Hemoglobin and hematocrit were stable. Electrolytes were normal. Troponin was negative. proBNP 1158. EKG showed sinus rhythm with nonspecific ST-T wave changes and voltage for left ventricular hypertrophy. He was given hydralazine IV x2. Blood pressure was still elevated. He was then admitted for evaluation of hypertensive urgency. He was admitted to monitored floor. Blood glucose was monitored. He was placed on insulin sliding scale. He underwent cardiac evaluation. He was continued on metoprolol. He was given antiplatelet therapy. Thyroid function was normal. Lipid panel was acceptable. Lisinopril and Norvasc was added to his regimen. Cardiac enzymes were monitored and were negative. Blood pressure improved but remains elevated. Patient did not have any chest pain or shortness of breath. Patient was stable for outpatient follow-up. Patient was cleared for discharge home. FINAL DIAGNOSES: Hypertensive urgency, improved Medication noncompliance Type 2 diabetes mellitus with hemoglobin A1c of 7.3 No signs for acute myocardial infarction or ongoing ischemia with better blood pressure control Favorable lipid parameters DISPOSITION: Patient was discharged home. DISCHARGE MEDICATIONS: Refer to Discharge Medication List. DISCHARGE INSTRUCTIONS: Follow-up in a week. I have been assigned to complete a discharge summary on this account, I was not involved with the patient's management.--ANGUS Royal Jacqueline Robles NP Jan 02, 2020 11:41
== END 2019-12-31 16:50 | disposition home or self-care (01) | DRG 199 ==
LOC: EDBD 08:35 → EMR 09:20 → EDBEDREQ 12:42 → 2E 12:53
DX: I16.0 Hypertensive urgency (principal); R00.1 Bradycardia, unspecified; I24.8 Other forms of acute ischemic heart disease; E11.9 Type 2 diabetes mellitus without complications; Z91.14 Patient's other noncompliance with medication regimen; R07.9 Chest pain, unspecified; M19.90 Unspecified osteoarthritis, unspecified site; I27.20 Pulmonary hypertension, unspecified
CPT/HCPCS: 36415; 70450; 71045; 80053; 80061; 82962; 83036; 83880; 84443; 84484; 85025; 87081; 93005; 96374; 96376; 99285; J1815

== ENCOUNTER 2020-03-05 07:09 | Emergency (ER) | payer MEDICARE, OTHER ==
[~2020-03-05] VITALS: Ht 175.3 cm; Wt 80.7 kg
[~2020-03-05 07:09] MED LIST changes: +ASPIRIN EC81 MG ORAL; +LEXAPRO5 MG ORAL; +NORVASC5 MG ORAL; +PRINIVIL20 MG ORAL
--- NOTE | 2020-03-05 07:30 | NUR ---
ED Nurse Note: brought by son from home due to weakness and shakiness of the body. Breathing normal/even/unlabored. skin warm/dry/intact. NAD noted. Denies numbness/tingling/facial droop.
--- NOTE | 2020-03-05 07:36 | NUR ---
ED Nurse Note: [phone]: Brooks (son).
[2020-03-05] MEDS ORDERED: DiphenhydrAMINE 50mg/ml Inj IVP ONE (07:45)
[2020-03-05] MEDS ORDERED: Acetaminophen 500mg (ES) tab ORAL ONE (07:45)
--- NOTE | 2020-03-05 07:52 | Emergency Room Report ---
History of Present Illness General Chief Complaint: Headache Source: Patient Present Illness HPI 79-year-old male history of hypertension, diabetes presents with vague complaints of feeling generalized weakness, sweats over the past 2 weeks, no aggravating relieving factors severity is moderate, constant he denies any chest pain shortness of breath dyspnea on exertion abdominal pain dysuria. Allergies: Coded Allergies: No Known Allergies (Unverified , 12/04/18) COVID-19 Screening Contact w/high risk pt: No Recent Travel to affected area: No Experienced COVID-19 symptoms?: No COVID-19 Testing performed DIAGRAM CLERK: No Patient History Past Medical History: see triage record Reviewed Nursing Documentation: PMH: Agreed; PSxH: Agreed Nursing Documentation-PMH Hx Hypertension: Yes Hx Diabetes: Yes Hx Cancer: No Hx Gastrointestinal Problems: No Hx Neurological Problems: No Review of Systems All Other Systems: negative except mentioned in HPI Physical Exam Vital Signs Date Time Temp Pulse Resp B/P (MAP) Pulse Ox O2 Delivery O2 Flow Rate FiO2 03/05/20 07:26 98.2 101 19 162/93 (116) 98 Room Air Sp02 EP Interpretation: reviewed, normal General Appearance: no apparent distress, alert Head: normocephalic, atraumatic Eyes: bilateral eye PERRL, bilateral eye EOMI ENT: uvula midline, moist mucus membranes Neck: supple, thyroid normal, supple/symm/no masses Respiratory: lungs clear, no respiratory distress, no retraction, no accessory muscle use Cardiovascular #1: normal peripheral pulses, no edema, no gallop, no murmur, tachycardia Gastrointestinal: non tender, soft, no guarding, no rebound Musculoskeletal: normal inspection Neurologic: alert, oriented x3 Psychiatric: mood/affect normal Skin: no rash, warm/dry Medical Decision Making Diagnostic Impression: Primary Impression: Weakness Additional Impression: Suspected 2019 novel coronavirus infection ER Course 79 year male presents with generalized weakness and malaise. DDx includes dehydration, suspected COVID, dka. Patient without AG Patient found to have an elevated lactic acid. Will plan for transfer to [facility] for evaluation and resuscitation. Patient endorsed to Dr. Renteria Laboratory Tests Test 03/05/20 08:00 03/05/20 08:30 White Blood Count 9.2 K/UL (4.8-10.8) Red Blood Count 4.53 M/UL (4.70-6.10) L Hemoglobin 13.3 G/DL (14.2-18.0) L Hematocrit 39.3 % (42.0-52.0) L Mean Corpuscular Volume 87 FL (80-99) Mean Corpuscular Hemoglobin 29.4 PG (27.0-31.0) Mean Corpuscular Hemoglobin Concent 33.9 G/DL (32.0-36.0) Red Cell Distribution Width 14.6 % (11.6-14.8) Platelet Count 206 K/UL (150-450) Mean Platelet Volume 7.0 FL (6.5-10.1) Neutrophils (%) (Auto) 79.6 % (45.0-75.0) H Lymphocytes (%) (Auto) 13.0 % (20.0-45.0) L Monocytes (%) (Auto) 5.4 % (1.0-10.0) Eosinophils (%) (Auto) 0.6 % (0.0-3.0) Basophils (%) (Auto) 1.5 % (0.0-2.0) Prothrombin Time 11.4 SEC (9.30-11.50) Prothrombin Time INR 1.0 (0.9-1.1) Activated Partial Thromboplast Time 29 SEC (23-33) Sodium Level 144 MMOL/L (136-145) Potassium Level 4.4 MMOL/L (3.5-5.1) Chloride Level 105 MMOL/L (98-107) Carbon Dioxide Level 22 MMOL/L (21-32) Anion Gap 17 mmol/L (5-15) H Blood Urea Nitrogen 17 mg/dL (7-18) Creatinine 1.5 MG/DL (0.55-1.30) H Estimated Glomerular Filtration Rate 45.3 mL/min (>60) Glucose Level 264 MG/DL (74-106) H Lactic Acid Level 3.50 mmol/L (0.4-2.0) H Calcium Level 9.4 MG/DL (8.5-10.1) Phosphorus Level 3.6 MG/DL (2.5-4.9) Magnesium Level 2.3 MG/DL (1.8-2.4) Total Bilirubin 0.7 MG/DL (0.2-1.0) Aspartate Amino Transferase (AST) 30 U/L (15-37) Alanine Aminotransferase (ALT) 33 U/L (12-78) Alkaline Phosphatase 303 U/L (46-116) H Troponin I 0.009 ng/mL (0.000-0.056) Pro-B-Type Natriuretic Peptide 370 pg/mL (0-125) H Total Protein 7.9 G/DL (6.4-8.2) Albumin 4.2 G/DL (3.4-5.0) Globulin 3.7 g/dL Albumin/Globulin Ratio 1.1 (1.0-2.7) Lipase 317 U/L (73-393) Thyroid Stimulating Hormone (TSH) 1.808 uiU/mL (0.358-3.740) Free Thyroxine 1.30 NG/DL (0.76-1.46) Free Triiodothyronine 2.3 pg/mL (2.3-4.2) Venous Blood pH 7.344 Venous Blood Partial Pressure CO2 42.8 Venous Blood Partial Pressure O2 51.8 Venous Blood HCO3 22.8 Venous Blood Total Carbon Dioxide 42.8 Venous Blood Base Excess -2.9 Venous Blood Carboxyhemoglobin 0.2 % (0.5-1.5) L Methemoglobin 0.8 EKG Diagnostic Results EKG Time: 08:01 EP Interpretation: NSR, rate 96, QTc 449, no acute ST elevations, normal axis Rhythm Strip Diag. Results Rhythm Strip Time: 08:08 EP Interpretation: yes Rate: 97 Rhythm: NSR, no PVC's, no ectopy Chest X-Ray Diagnostic Results Chest X-Ray Diagnostic Results : Chest X-Ray Ordered: Yes # of Views/Limited/Complete: 1 View Indication: Chest Pain EP Interpretation: Yes Interpretation: no consolidation, no effusion, no pneumothorax, no acute cardiopulmonary disease Impression: No acute disease Electronically Signed by: Tony Mosquera MD Last Vital Signs Date Time Temp Pulse Resp B/P (MAP) Pulse Ox O2 Delivery O2 Flow Rate FiO2 03/05/20 07:26 98.2 101 19 162/93 (116) 98 Room Air Disposition: SHORT-TERM [facility] Condition: Stable Referrals: Reggie Harris MD (PCP) Tony Mosquera MD March 05, 2020 07:51
[2020-03-05 08:09] VITALS: BP 164/72
[2020-03-05 08:18] LABS: BASOPHILS % (AUTO) 1.5 % (0.0-2.0); EOSINOPHILS % (AUTO) 0.6 % (0.0-3.0); HEMATOCRIT 39.3 % (42.0-52.0); HEMOGLOBIN 13.3 G/DL (14.2-18.0); MEAN CORPUSCULAR VOLUME 87 FL (80-99); MONOCYTES % (AUTO) 5.4 % (1.0-10.0); NEUTROPHILS % (AUTO) 79.6 % (45.0-75.0); PLATELET COUNT 206 K/UL (150-450); RED BLOOD COUNT 4.53 M/UL (4.70-6.10); RED CELL DISTRIBUTION WIDTH 14.6 % (11.6-14.8); WHITE BLOOD COUNT 9.2 K/UL (4.8-10.8)
--- NOTE | 2020-03-05 08:24 | Diagnostic Imaging Report ---
EXAM: XR Chest, 1 View CLINICAL HISTORY: COUGH TECHNIQUE: Frontal view of the chest. COMPARISON: No relevant prior studies available. FINDINGS: Lungs: Unremarkable. The lungs appear clear. No focal consolidation. Pleural space: Unremarkable. The costophrenic angles are sharp. No visible pneumothorax. Heart: Cardiac silhouette is prominent, however is likely magnified by portable AP exam technique. Mediastinum: Unremarkable. Bones/joints: Unremarkable. Tubes, lines and devices: Telemetry leads overlie the thorax. IMPRESSION: No acute findings.
[2020-03-05 08:42] LABS: PHOSPHORUS 3.6 MG/DL (2.5-4.9)
--- NOTE | 2020-03-05 09:00 | NUR ---
ED Nurse Note: Pt and pt's daughter that pt might be transfer to different hospital. daughter, son,
[2020-03-05 09:01] VITALS: BP 150/67
[2020-03-05 09:09] LABS: ANION GAP 17 mmol/L (5-15); BLOOD UREA NITROGEN 17 mg/dL (7-18); CALCIUM 9.4 MG/DL (8.5-10.1); CARBON DIOXIDE 22 MMOL/L (21-32); CHLORIDE 105 MMOL/L (98-107); CREATININE 1.5 MG/DL (0.55-1.30); POTASSIUM 4.4 MMOL/L (3.5-5.1); SODIUM 144 MMOL/L (136-145)
[2020-03-05 09:13] LABS: ALANINE AMINOTRANSFERASE 33 U/L (12-78); ALBUMIN 4.2 G/DL (3.4-5.0); ALBUMIN/GLOBULIN RATIO 1.1 (1.0-2.7); ALKALINE PHOSPHATASE 303 U/L (46-116); ASPARTATE AMINO TRANSFERASE 30 U/L (15-37); BILIRUBIN,TOTAL 0.7 MG/DL (0.2-1.0)
--- NOTE | 2020-03-05 09:50 | NUR ---
ED Nurse Note: COVID swab, urine, and lactic reflex and and sent down to the lab
[2020-03-05 09:51] VITALS: BP 145/67
--- NOTE | 2020-03-05 10:08 | NUR ---
ED Nurse Note: report given to AP [place]es and pt will be transfer to [facility] via [id number]. Breathing normal/even/unlabored. Skin warm/dry/intact. NAD noted. Pt left with all of his belongings. Family was notified of the transfer.
[2020-03-05 10:12] VITALS: BP 145/67
[2020-03-05 10:50] LABS: APPEARANCE,URINE CLEAR; BILIRUBIN, URINE NEGATIVE (NEGATIVE); COLOR,URINE PALE YELLOW; GLUCOSE, URINE (UA) 3+ (NEGATIVE); KETONES,URINE NEGATIVE (NEGATIVE); LEUKOCYTE ESTERASE ,URINE NEGATIVE (NEGATIVE); NITRITE,URINE NEGATIVE (NEGATIVE); PH,URINE 6 (4.5-8.0); PROTEIN,URINE NEGATIVE (NEGATIVE); UROBILINOGEN,URINE NORMAL MG/DL (0.0-1.0)
== END 2020-03-05 10:16 | disposition short-term general hospital (02) ==
LOC: EMR 07:33
DX: R53.1 Weakness (principal); R53.83 Other fatigue; I10 Essential (primary) hypertension; E11.9 Type 2 diabetes mellitus without complications; R05 Cough
CPT/HCPCS: 36415; 71045; 80053; 81003; 82803; 82962; 83605; 83690; 83735; 83880; 84100; 84439; 84443; 84481; 84484; 85025; 85610; 85730; 87040; 93005; 96360; 99285; J7030; U0002; 87635